=== PATIENT | male | born 1960 | race Caucasian/White ===

== ENCOUNTER 2019-10-26 08:51 | Outpatient (CLI) | payer OTHER, SELFPAY ==
--- NOTE | ~2019-10-26 | XR_ITS ---
EXAMINATION: XR humerus LT DATE: 10/26/2019 09:22 INDICATION: Left shoulder and arm pain. TECHNIQUE: 2 views of left humerus on 3 radiographs were obtained. COMPARISON: None. FINDINGS: Bone alignment is normal. No fracture. The elbow joint space is normal. IMPRESSION: 1. No fracture. Reviewed, dictated and finalized at location A. IMPRESSION: 1. No fracture.
--- NOTE | ~2019-10-26 | XR_ITS ---
EXAMINATION: XR shoulder LT min 2V DATE: 10/26/2019 09:22 INDICATION: Left shoulder pain. TECHNIQUE: 4 views of left shoulder were obtained. COMPARISON: None. FINDINGS: Bone alignment is normal. No fracture. There is mild glenohumeral joint osteoarthritis. The re is moderate acromioclavicular joint osteoarthritis. IMPRESSION: 1. Polyarticular osteoarthritis. Reviewed, dictated and finalized at location A.
== END 2019-10-26 08:52 | disposition home or self-care (01) ==
PROVIDERS: PCP Internal Medicine; Visit Provider Internal Medicine
DX: M25.512 Pain in left shoulder (principal); M79.602 Pain in left arm
CPT/HCPCS: 73030; 73060

== ENCOUNTER 2019-11-02 07:46 | Outpatient (RCR) | payer OTHER, SELFPAY ==
--- NOTE | 2019-11-02 08:36 | PTOPEVAL ---
Thank you for referring Wilbur Lacey to [facility]. Please review, sign, date and return this plan of care CLAUDIA. I agree with and certify that the following plan of care is medically necessary. Referring Physician Date Admitting Provider: Attending Provider: Casa Tapia MD Referring Provider: *PT Outpatient Evaluation Start: 11/02/19 08:05 Freq: Status: Active Protocol: Document 11/02/19 08:06 LEON (Rec: 11/02/19 08:32 LEON [id number]) Therapy Assessment Status Assessment Status Assessment Status Evaluation Evaluation Information Problem Diagnosis left shoulder pain Onset 07/29/19 Additional Evaluation Detail Quick DASH=35 Subjective Information Pt. reports that he slipped on Query Text:As Reported By Patient/ a curb 3rd week of july and Family fell onto his left elbow. He reports that he underwent xray which was negative. He reports that since the injury he cant reach across the body or behind his back without pain. He has improved since the initial injury but still has consistent pain. He states that he has difficulty with yardwork. He reports that his goal is to decrease his left shoulder pain. Prior Level of Function Activity Level (Last 3 Months) Occupation retired Hand Dominance Right Activity of Daily Living Ability Independent Indoor/Home Mobility Independent Community Mobility Independent Stairs Ability Independent Functional Cognition (Planning, Shopping Independent , Taking Medications) Cooking Yes Cleaning Yes Laundry Yes Shopping Yes Driving No Pain Assessment Pain Scale Pain Scale Used Numeric (1 - 10) Self Report Pain Assessment Left Shoulder(s) Reported Pain Level 2 Pain Description Throbbing Pain Frequency Continuous Lowest Pain Intensity 2 Greatest Pain Intensity 4 Pain Aggravating Factors ADL's,Lifting Pain Behaviors None Pain Relief Interventions Used By Inactivity/Rest Patient Pain Score Pain Score 2: Self Report Upper Extremity Range of Motion General Upper Extremity Range of Motion Gross Upper Extrem
== END 2019-12-01 10:35 | disposition home or self-care (01) ==
LOC: CHSPT 07:46
PROVIDERS: PCP Internal Medicine; Visit Provider Internal Medicine
DX: M25.512 Pain in left shoulder (principal)
CPT/HCPCS: 97014; 97110; 97140; 97161; G0283

== ENCOUNTER 2020-02-28 11:42 | Outpatient (CLI) | payer OTHER, SELFPAY ==
--- NOTE | ~2020-02-28 | XR_ITS ---
EXAMINATION: XR chest 2V 02/28/2020 12:12 INDICATION: Cough. Hypertension. Emphysema. PROCEDURE: 2 view chest COMPARISON: 08/06/2015 FINDINGS: The lungs are clear. The lungs are hyperinflated which is consistent with, but not diagnost ic of chronic obstructive pulmonary disease. The cardiomediastinal silhouette is within normal limit s. There are no pleural effusions. There is no pneumothorax suspected. IMPRESSION: 1: NO ACUTE CARDIOPULMONARY DISEASE. Reviewed, dictated and finalized at location B.
[2020-02-28 12:17] LABS: Add Urine Microscopic? NO; Appearance Urine Clear (Clear); Bilirubin Urine Negative (Negative); Blood Urine Negative (Negative); Color Urine Yellow (Yellow); Glucose Urine UA Negative (Negative); Ketones Urine Negative (Negative); Leukocyte Esterase Ur Negative (Negative); Nitrate Urine Negative (Negative); Protein Urine Negative (Negative); Urobilinogen Urine 0.2 mg/dL (0.2-1.0); pH Urine 5.5 (5.0-8.0)
[2020-02-28 12:21] LABS: Basophils Absolute Auto 0.04 K/mm3 (0.00-0.10); Basophils Percent Auto 0.4 % (0.0-1.0); Eosinophils Absolute Auto 0.07 K/mm3 (0.02-0.50); Eosinophils Percent Auto 0.7 % (1.0-6.0); Hematocrit 50.1 % (40.0-54.0); Immature Granulocyte Absolute 0.03 K/mm3 (0.00-0.00); Immature Granulocyte Percent A 0.3 % (0.0-0.0); Lymphocytes Absolute Auto 2.34 K/mm3 (1.10-4.50); Lymphocytes Percent Auto 24.5 % (18.0-42.0); Mean Corpuscular HGB Conc 33.9 g/dL (32.0-36.0); Mean Corpuscular Hemoglobin 31.7 pg (27.0-31.0); Mean Corpuscular Volume 93.3 fL (78.0-102.0); Mean Platelet Volume 10.5 fl (8.7-11.0); Monocytes Absolute Auto 0.97 K/mm3 (0.10-0.90); Monocytes Percent Auto 10.2 % (2.0-11.0); Neutrophils Absolute Auto 6.1 K/mm3 (1.7-7.2); Neutrophils Percent Auto 63.9 % (50.0-70.0); Platelet Count Result 277 K/mm3 (150-420); Red Blood Count 5.37 M/mm3 (4.70-6.10); Red Cell Distribution Width 13.5 % (11.6-14.4); White Blood Count 9.5 K/mm3 (4.8-10.8)
[2020-02-28 13:32] LABS: Alanine Aminotransferase 30 U/L (16-63); Albumin Level 4.2 g/dL (3.4-5.0); Alkaline Phosphatase 69 U/L (46-116); Anion Gap 8 mmol/L (8-16); Aspartate Amino Transferase 21 U/L (15-37); Bilirubin,Total 0.3 mg/dL (0.00-1.00); Blood Urea Nitrogen 16 mg/dL (7-18); Calcium 9.1 mg/dL (8.5-10.1); Carbon Dioxide 28 mmol/L (21-32); Chloride 104 mmol/L (98-108); Cholesterol 209 mg/dL (0-200); Estimated Glomerular Filt Rate > 60; Glucose 96 mg/dL (70-99); HDL Direct 72 mg/dL (40-60); LDL Cholesterol Calculated 129 mg/dL (<130); Osmolality Calculated 291 mOsm/kg (285-295); Potassium 4.9 mmol/L (3.5-5.1); Prostate Specific Antigen 1.2 ng/mL (< OR = 4.0); Sodium 140 mmol/L (136-145); Total Protein 7.3 g/dL (6.4-8.2); Triglycerides 42 mg/dL (0-150)
== END 2020-02-28 11:43 | disposition home or self-care (01) ==
LOC: CHSLAB 11:44
PROVIDERS: PCP Internal Medicine; Visit Provider Internal Medicine
DX: Z00.00 Encounter for general adult medical examination without abnormal findings (principal); I10 Essential (primary) hypertension; Z12.5 Encounter for screening for malignant neoplasm of prostate
CPT/HCPCS: 36415; 71046; 80053; 80061; 81003; 84153; 85025; G0103

== ENCOUNTER 2021-05-12 11:24 | Outpatient (CLI) | payer MEDICARE, SELFPAY ==
[2021-05-12 12:37] LABS: Influenza Control Valid (Valid)
[2021-05-12 15:04] LABS: SARS-CoV-2 Ag Negative (Negative)
== END 2021-05-12 11:25 | disposition home or self-care (01) ==
LOC: CHSLAB 11:29
PROVIDERS: PCP Internal Medicine; Visit Provider Internal Medicine
DX: J06.9 Acute upper respiratory infection, unspecified (principal); Z20.822 Contact with and (suspected) exposure to COVID-19
CPT/HCPCS: 87081; 87426; 87804; 87880; C9803

== ENCOUNTER 2022-05-06 08:47 | Outpatient (CLI) | payer MEDICARE, OTHER, SELFPAY ==
--- NOTE | ~2022-05-06 | CT_ITS ---
EXAMINATION: CT lung screening DATE: 05/06/2022 09:24 INDICATION: Personal history of nicotine dependence, current smoker with 67.5 pack year history TECHNIQUE: Computed tomography (CT) of the chest was performed without intravenous contrast. The dose -length product (DLP) was 157.86 mGy-cm. Automated exposure control and iterative reconstruction tech Numerex were employed. COMPARISON: None FINDINGS: There is mild emphysema. There is a triangular nodule in association with the major fissure on the right, consistent with a fissural lymph node. The lungs are free of acute opacities. No pleur al effusion or pneumothorax. No pathologically enlarged thoracic lymph nodes are identified. The hear t size is normal. Calcified coronary artery atherosclerosis is noted. There is mild thoracic spondylo sis. IMPRESSION: 1. Lung-RADS category 1: Negative. Continue annual screening with noncontrast low-dose chest CT in 12 months. Reviewed, dictated and finalized at location B. DRY TECH IMPRESSION: 1. Lung-RADS category 1: Negative. Continue annual screening with noncontrast l ow-dose chest CT in 12 months.
== END 2022-05-06 08:48 | disposition home or self-care (01) ==
LOC: CHSIMG 08:50
PROVIDERS: PCP Internal Medicine; Visit Provider Internal Medicine
DX: Z12.2 Encounter for screening for malignant neoplasm of respiratory organs (principal); Z87.891 Personal history of nicotine dependence
CPT/HCPCS: 71271

== ENCOUNTER 2022-05-12 10:29 | Outpatient (CLI) | payer MEDICARE, OTHER, SELFPAY ==
--- NOTE | 2022-05-12 12:03 | NIOX ---
Niox Report PFT: FeNO Evaluation (NIOX) Start: 05/12/22 12:02 Freq: Status: Active Protocol: Activity Type Activity Date Activity User E-sign Co-sign Detail Recorded Client Recorded Date Recorded By Document 05/12/22 11:02 JERRY [id number] 05/12/22 12:03 JERRY 05/12/22 11:02 NIOX Evaluation [NIOX Measurement] -FeNO Measurement Equals (ppb) 15 [NIOX Evaluation] -Level of Airway Inflammation Low (<25) [Comments] -NIOX Comments Performed well. [Charges] -NIOX Measurement Charges Yes
== END 2022-05-12 10:30 | disposition home or self-care (01) ==
LOC: CHSCARD 10:31
PROVIDERS: PCP Internal Medicine; Visit Provider Internal Medicine
DX: J43.9 Emphysema, unspecified (principal)
CPT/HCPCS: 94060; 94726; 94729; 95012

== ENCOUNTER 2023-05-07 08:49 | Outpatient (CLI) | payer MEDICARE, OTHER, SELFPAY ==
--- NOTE | ~2023-05-07 | CT_ITS ---
EXAMINATION: CT lung screening DATE: 05/07/2023 09:17 INDICATION: Personal history of nicotine dependence TECHNIQUE: Computed tomography (CT) of the chest was performed without intravenous contrast. The dose -length product was 125.19 mGy-cm. Automated exposure control and iterative reconstruction technique were employed. COMPARISON: None FINDINGS: No significant pleural or pericardial effusion. No thoracic lymphadenopathy. Heart size nor mal. There is an accessory splenule in the left upper abdomen. Otherwise, the upper abdomen is unrema rkable. There is emphysema. No endobronchial lesions. There is right middle lobe atelectasis. No susp icious pulmonary nodules or masses. No pneumothorax. No endobronchial lesions. There is atheroscleros is. IMPRESSION: 1. Lung-RADS category 1: Negative. Continue annual screening with noncontrast low-dose chest CT in 12 months. Reviewed, dictated and finalized at location A. GN ASSISTANT IMPRESSION: 1. Lung-RADS category 1: Negative. Continue annual screening with noncontrast l ow-dose chest CT in 12 months.
== END 2023-05-07 08:50 | disposition home or self-care (01) ==
LOC: CHSIMG 08:53
PROVIDERS: PCP Internal Medicine; Visit Provider Internal Medicine
DX: Z12.2 Encounter for screening for malignant neoplasm of respiratory organs (principal); Z87.891 Personal history of nicotine dependence
CPT/HCPCS: 71271

== ENCOUNTER 2024-05-08 08:17 | Outpatient (CLI) | payer MEDICARE, SELFPAY ==
--- NOTE | ~2024-05-08 | CT_ITS ---
EXAMINATION: CT lung screening DATE: 05/08/2024 08:54 INDICATION: PERSONAL HX OF NICOTINE DEPENDENCE TECHNIQUE: Computed tomography (CT) of the chest was performed without intravenous contrast. Addition al 3D reconstructions utilizing coronal maximum intensity projection (MIP) were performed. Automated exposure control and iterative reconstruction technique were employed. The dose-length product was 11 1.55 mGy-cm. COMPARISON: None FINDINGS: Mild emphysema. No suspicious pulmonary nodules, pneumonia, pulmonary edema or pleural effusion. Hear t size is normal. Atherosclerotic coronary artery calcifications. No pericardial effusion. Thoracic a brayan is normal caliber. No pathologically enlarged thoracic lymphadenopathy. Visualized upper abdomen is unremarkable. Mild thoracic spondylosis. IMPRESSION: 1. Lung-RADS category 1: Negative. Continue annual screening with noncontrast low-dose chest CT in 12 months. Reviewed, dictated and finalized at location B. IANCE REPAIRER IMPRESSION: 1. Lung-RADS category 1: Negative. Continue annual screening with noncontrast l ow-dose chest CT in 12 months.
== END 2024-05-08 08:18 | disposition home or self-care (01) ==
LOC: CHSIMG 08:22
PROVIDERS: PCP Internal Medicine; Visit Provider Internal Medicine
DX: Z12.2 Encounter for screening for malignant neoplasm of respiratory organs (principal); Z87.891 Personal history of nicotine dependence
CPT/HCPCS: 71271

== ENCOUNTER 2024-11-09 18:00 | Emergency (ER) | payer MEDICARE, SELFPAY ==
--- NOTE | ~2024-11-09 | CT_ITS ---
.. History: Head injury PROCEDURE: CT head without contrast. COMPARISON: None TECHNIQUE: Axial imaging of the head performed from the skull base to the vertex without IV contrast. Sagittal a nd coronal reformations obtained. DLP: 681 mGy-cm FINDINGS: The ventricles are enlarged. The dilatation of the ventricles is proportional to the degree of sulcal prominence, not uncommon in the senescent brain. Decreased attenuation is identified within the periventricular white matter, likely secondary to micr ovascular ischemic disease, in a patient of this age. There is no mass, mass effect or midline shift. There is no abnormal extra-axial fluid collection or intracranial hemorrhage. Dense opacification of the right maxillary sinus. Mucoperiosteal thickening within the bilateral ethmoid sinuses. Bilateral frontal and sphenoid sinuses are clear. The mastoid air cells are well aerated. No acute displaced fractures within the overlying cranium. Impression: No acute intracranial hemorrhage or suspicious mass effect. Inflammatory sinus disease. Reviewed, dictated and finalized at location A. Impression: No acute intracranial hemorrhage or suspicious mass effect. Inflammatory sinus disease.
[2024-11-09 18:00] VITALS: BP 144/86; PULSE 82; RESP 18; TEMP 36.3; O2SAT 96
--- OUTSIDE RECORDS SUMMARY | 2024-11-09 18:07 | XMS_ITS | Continuity of Care Document ---
Author Organization [facility] Address [address] [place] [address] [place] [address] Phone Care Team Providers Care Automatic Buffing Wheel Former Name Role Phone Remington Martell Unavailable Unavailable Procedures Procedure Date Office Consultation Advance Directives Directive Yes / No Effective Date File Name No Information Encounters Encounter Description Practice Location Reason(s) For Visit Diagnoses Date Provider Providers Copied on Encounter Office Consultation [facility], [address], [place], [place], [id number], [place] tel:[phone] [facility] No Information [address] [place], [address], [place]. tel:[phone] Referring Provider: Wilbur Dumont, [address] [place], [address]. tel:[phone] Family History Family Member Type Diagnosis Age At Onset No Information Payers Payer name Insurance type Covered republican ID Authoriza tion(s) [facility] [id number] Social History Type Description Quantity Date Captured [...]
--- OUTSIDE RECORDS SUMMARY | 2024-11-09 18:07 | XMS_ITS | Clinical Summary ---
Author Organization [facility] Address [facility] [place] [address] Care Team Providers Care Printed Circuit Boards Contact Printer Name Role Phone Unavailable Primary Care Provider Unavailabl e Social History Tobacco Use Types Packs/Day Years Used Date Smoking Tobacco: Never Assessed Sex and Gender Information Value Date Recorded Sex Assigned at Not on file Legal Sex Male 9:20 PM CDT Gender Identity Not on file Sexual Orientation Not on file Plan of Treatment Health Maintenance Due Date Last Done Comments Colorectal Cancer Screening Colonoscopy (10 Years) 1958 Hepatitis C 1976 DTaP, Tdap and Td Vaccines ( 1 - Tdap) 1977 Pneumococcal Vaccine: 50+ Ye ars (1 of 1 - PCV) 2008 Zoster Vaccines (1 of 2) 2008 COVID-19 Vaccine ( - 2023-2 5 season) 2024 RSV Immunization or 60+ Years (1 - 1-dose 75+ series) 2033 Meningococcal B Vaccine Aged Out No l onger eligible based on patient's age to complete this topic Meningococcal Vaccine Aged Out No dante tramaine eligible based on patient's age to complete this topic RSV Immunizations Under 20 Months Aged Out No longer eligible based on patient's age to complete this topic
--- OUTSIDE RECORDS SUMMARY | 2024-11-09 18:36 | XMS_ITS | Clinical Summary ---
Author Organization [facility] Address [facility] [place] [address] Care Team Providers Care Solar Business Developer Name Role Phone Unavailable Primary Care Provider [...]
--- OUTSIDE RECORDS SUMMARY | 2024-11-09 18:36 | XMS_ITS | Continuity of Care Document ---
Author Organization [facility] Address [address] [place] [address] [place] [address] Phone Care Team Providers Care Hot Dipper Name Role Phone Remington Martell Unavailable Unavailable Procedures Procedure Date Office Consultation Advance Directives Directive Yes / No Effective Date File Name No Information Encounters Encounter Description Practice Location Reason(s) For Visit Diagnoses Date Provider Providers Copied on Encounter Office Consultation [facility], [address], [place], [place], [address], [place] tel:[phone] [facility] No Information [address] [place], [address], [place]. tel:[phone] Referring Provider: Wilbur Dumont, [address] [place], [address]. tel:[phone] Family History Family Member Type Diagnosis Age At Onset No Information Payers Payer name Insurance type Covered constitution party ID Authoriza tion(s) [facility] [id number] Social History Type Description Quantity Date Captured [...]
--- NOTE | 2024-11-09 18:55 | ED.FALL ---
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 There is no neurological deficits. complaint: fall Onset (ago): hour(s) Fall witnessed: yes, by family Loss of consciousness: seconds Length of LOC: second(s) Prolonged down time: no Symptoms prior to fall: other ( intoxicated) Location of injury: head Related Data Allergies Allergy/AdvReac Type Severity Reaction Status Date / Time No Known Allergies Allergy Verified 11/09/24 18:07 Review of Systems Review of Systems: All systems reviewed & are unremarkable except as noted in HPI and below PMFSH Past Medical History Medical History Patient denies medical problems Exam Const: General: healthy appearing Nutritional Appearance: well nourished Orientation/consciousness: patient oriented x3 Limitations: no limitations HENMT: Head: normal to inspection Face and sinus: normal facial exam Eyes: Conjunctivae: conjunctivae normal Pupils: Equal, round and reactive pupils present EOM: EOMs intact bilaterally Neck: Neck: normal visual inspection, no lymphadenopathy and no meningeal signs Chest: Chest palpation & inspection: normal inspection of the chest Resp: Effort & Inspection: normal respiratory effort Auscultation: clear to auscultation bilaterally Cardio: Rate: regular rate Rhythm: regular rhythm GI: GI Palp: Yes Soft to palpation Auscultation: normal bowel sounds Neuro: General: patient oriented x3, moves all extremities, no meningeal signs and no focal motor deficits Extrem: General: normal to inspection and no clubbing, cyanosis or edema Course Course Emergency Course: patient had a fall and no symptoms currently no blurry vision no headache no nausea vomiting and had a CT of the brain that was. Vital Signs Vital signs: Vital Signs Temperature 36.3 C L 11/09/24 18:00 Pulse Rate 82 11/09/24 18:00 Respiratory Rate 18 11/09/24 18:00 Blood Pressure 144/86 H 11/09/24 18:00 Pulse Oximetry 96 11/09/24 18:00 Oxygen Delivery Room Air 11/09/24 18:00 Temperature 36.3 C L 11/09/24 18:00 Pulse Rate 82 11/09/24 18:00 Respiratory Rate 18 11/09/24 18:00 Blood Pressure 144/86 H 11/09/24 18:00 Pulse Oximetry 96 11/09/24 18:00 Oxygen Delivery Room Air 11/09/24 18:00 Critical Care Time Critical Care Time Critical Care Time: No Discharge Plan Discharge Clinical Impression: Head injury Qualifiers: Encounter type: initial encounter Qualified Code(s): S09.90XA - Unspecified injury of head, initial encounter Patient Disposition: Home Condition: Stable Instructions: Antibiotic Form, Head Injury (ED) Additional Instructions: advised patient to follow with primary care physician if symptoms persist or worsen. Patient Language: Luxembourger Follow-up/Referrals: Casa Tapia MD [Primary Care Provider] - Time of Disposition: 18:59
[2024-11-09 19:01] VITALS: BP 131/78; PULSE 76; RESP 18; O2SAT 96
== END 2024-11-09 19:01 | disposition home or self-care (01) ==
PROVIDERS: Emergency Provider Emergency Medicine; PCP Internal Medicine
DX: S09.90XA Unspecified injury of head, initial encounter (principal); W18.39XA Other fall on same level, initial encounter; Y92.007 Garden or yard of unspecified non-institutional (private) residence as the place of occurrence of the external cause
CPT/HCPCS: 70450; 99284

== ENCOUNTER 2025-01-23 07:59 | Outpatient (CLI) | payer MEDICARE, SELFPAY ==
--- OUTSIDE RECORDS SUMMARY | 2007-06-13 08:12 | XMS_ITS | Continuity of Care Document ---
Author Organization [facility] Address [address] [place] [address] [place] [address] Phone Care Team Providers Care Web Content Executive Name Role Phone Remington Martell Unavailable Unavailable Procedures Procedure Date Office Consultation Advance Directives Directive Yes / No Effective Date File Name No Information Encounters Encounter Description Practice Location Reason(s) For Visit Diagnoses Date Provider Providers Copied on Encounter Office Consultation formerly [facility], [address], [place], [place], [id number], [place] tel:[phone] [facility] No Information [address] [place], [address], [place]. tel:[phone] Referring Provider: Wilbur Dumont, [address] [place], [address]. tel:[phone] Family History Family Member Type Diagnosis Age At Onset No Information Payers Payer name Insurance type Covered democrat ID Authoriza tion(s) [facility] [id number] Social History Type Description Quantity Date Captured Comments Sex Male Smoking Status No Information Chief Complaint And Reason For Visit No Information Reason For Referral Reason For Referral No Information History Of Present Illness Encounter Date Complaint History Of Prese nt Illness No Information Functional Status Date Functional Assessmen t No Information Instructions Date Instruction Additional Infor mation No Information Assessments Type Assessment Date No Information Patient Care Teams Name Effective Dates (start - stop) Status Members No Information
--- OUTSIDE RECORDS SUMMARY | 2025-01-23 08:38 | XMS_ITS | Clinical Summary ---
Author Organization [facility] Address [facility] [place] [address] Care Team Providers Care Livestock Exhibitor Name Role Phone Unavailable Primary Care Provider [...] COVID-19 Vaccine ( - 2023-2 5 season) 2025 RSV Immunization or 60+ Years (1 - [...]
--- OUTSIDE RECORDS SUMMARY | 2025-01-23 08:38 | XMS_ITS | Patient Health Record ---
Author Organization [facility] Address [address] [place], [place] [address] Care Team Providers Care Telegraph Editor Name Role Phone THANH CHAUDHRY Unavailable [phone] Casa Tapia Unavailable Unavailable Reason For Referral No Information Plan Of Treatment No Information Insurance Providers Payer Name Payer Address Payer Phone Subscriber Number Group Number Insured Name Patient Relationship to Insured Coverage Start Date Coverage End Date [facility] ATTN CLAIMS [address] [place] [address] [id number] MELLISA OVIEDO Self - patient is the insured
[2025-01-23 09:09] LABS: Alanine Aminotransferase 37 U/L (6-50); Albumin Level 4.6 g/dL (3.5-5.1); Alkaline Phosphatase 79 U/L (38-126); Anion Gap 11 mmol/L (4-12); Aspartate Amino Transferase 35 U/L (17-59); Bilirubin,Total 0.7 mg/dL (0.2-1.3); Blood Urea Nitrogen 14 mg/dL (9-20); Calcium 10.0 mg/dL (8.4-10.2); Carbon Dioxide 26 mmol/L (22-30); Chloride 100 mmol/L (98-107); Cholesterol 164 mg/dL (0-200); Estimated Glomerular Filt Rate > 60; Glucose 115 mg/dL (65-110); HDL Direct 60 mg/dL; Osmolality Calculated 285 mOsm/kg (285-295); Potassium 5.1 mmol/L (3.4-5.0); Sodium 137 mmol/L (137-145); Total Protein 8.4 g/dL (6.3-8.2); Triglycerides 79 mg/dL (<150)
[2025-01-23 14:14] LABS: Hemoglobin A1C 5.5 % (<5.7)
== END 2025-01-23 08:00 | disposition home or self-care (01) ==
LOC: CHSLAB 08:01
PROVIDERS: PCP Internal Medicine; Visit Provider Internal Medicine
DX: E78.5 Hyperlipidemia, unspecified (principal); R73.01 Impaired fasting glucose; I10 Essential (primary) hypertension
CPT/HCPCS: 36415; 80053; 80061; 83036